=== PATIENT | female | born 1935 | race Caucasian/White ===

== ENCOUNTER → 2017-01-16 | Outpatient (CLI) | payer MEDICARE, BC, OTHER ==
[~2017-01-16] MED LIST: LIDOCAINE 1% MDV 20ML VIAL As Ordered ONE
--- NOTE | 2017-01-16 16:32 | REP ---
Stereotactic needle biopsy left breast: History: Suspicious progressive asymmetric density left breast on mammography from 12/25/2016. The patient referred for stereotactic needle biopsy. Procedure: The patient and her were interviewed and informed consent was obtained. Initially the biopsy was attempted from a craniocaudal approach however there is not sufficient room to allow for functioning of the needle in this lesion near 6 o'clock position. Accordingly, stereotactic imaging was performed in the lateromedial projection and this resulted in successful localization. Utilizing 5 mL of 1% lidocaine for local anesthetic and aseptic precautions as well as stereotactic mammographic guidance, an 8-[place] Mammotome suction assisted biopsy needle was advanced in the left breast into the soft tissue density without significant difficulty. Pre-fire images show good localization. Total of 6 core specimens were retrieved. Hemostasis was achieved by manual compression. The patient tolerated procedure well. Impression: Stereotactic needle biopsy procedure left breast. Signed by Dejan De La Cruz MD 01/16/2017 04:42 P
--- NOTE | 2017-01-16 17:03 | REP ---
Digital diagnostic unilateral left breast mammography with CAD: History: Marker clip placement views post stereotactic needle biopsy. Findings: Craniocaudal and mediolateral views of the left breast post biopsy demonstrate a 4.6 cm hematoma at the biopsy site. The marker clip is in good position in the left breast inferior and just lateral to the plane of the nipple. The original target is obscured. Impression: Marker clip in good position. Postbiopsy hematoma seen. Signed by Dejan De La Cruz MD 01/17/2017 08:08 A
== END ==
LOC: M RADPRO 13:44
PROVIDERS: ATTEND Family Medicine
DX: R92.8 Other abnormal and inconclusive findings on diagnostic imaging of breast (principal); L76.82 Other postprocedural complications of skin and subcutaneous tissue; Z88.3 Allergy status to other anti-infective agents; Z88.2 Allergy status to sulfonamides; Z88.8 Allergy status to other drugs, medicaments and biological substances; Z79.899 Other long term (current) drug therapy

== ENCOUNTER → 2018-08-07 | Outpatient (CLI) | payer MEDICARE, BC, OTHER ==
--- NOTE | 2018-08-07 14:53 | REP ---
BILATERAL KNEES, EIGHT VIEWS: HISTORY: Pain. RIGHT KNEE: There is no acute fracture or dislocation. There is minimal narrowing of the joint spaces. An osteophyte is present on the patella. IMPRESSION:Degenerative change as described above. LEFT KNEE: There is no acute fracture or dislocation. There is minimal narrowing of the joint spaces. Osteophytes are present on the tibia and patella. A calcification is present superior to the patella. This represents tendon calcification. IMPRESSION:Degenerative change as described above. Electronically Signed by Jose A Marquis MD 08/07/2018 02:55 P
== END ==
LOC: M WUC 11:56
PROVIDERS: ATTEND Nurse Practitioner Family
DX: M17.0 Bilateral primary osteoarthritis of knee (principal); M25.761 Osteophyte, right knee; M25.762 Osteophyte, left knee; M25.561 Pain in right knee; M25.562 Pain in left knee

== ENCOUNTER → 2019-01-14 | Outpatient (CLI) | payer MEDICARE, BC, OTHER ==
--- NOTE | 2019-01-14 19:13 | ECGEPIP ---
[facility] Test Date: 2019-01-14 Pat Name: ANA VARGAS Department: Room: - Gender: Female Documentation Consultant: [facility] : [id number] Requested By: RIRI Smart Order Number: [id number] Reading MD: Munir Rosas Measurements Intervals [place] Rate: 65 P: 54 LA: 217 QRS: QRSD: 65 T: 24 QT: 356 QTc: 372 Interpretive Statements Normal sinus rhythm LA conduction disturbance First-degree AV block Somewhat low voltages with slow precordial R-wave progression and persistent S waves V5 and V6; body habitus versus pulmonary disease. Nonspecific T-wave abnormalities No prior tracing for comparison. Clincal correlation advised Electronically Signed on 01-14-2019 19:13:36 EDT by Munir Rosas
== END ==
LOC: M EKG 10:28
PROVIDERS: ATTEND Orthopaedic Surgery
DX: Z01.810 Encounter for preprocedural cardiovascular examination (principal); M20.41 Other hammer toe(s) (acquired), right foot

== ENCOUNTER → 2019-09-07 | Outpatient (REF) | payer MEDICARE, OTHER | LOC: M LAB REF 16:57 | PROVIDERS: ATTEND Orthopaedic Surgery | DX: Z89.421 Acquired absence of other right toe(s) (principal) ==

== ENCOUNTER → 2019-11-24 | Outpatient (CLI) | payer MEDICARE, BC, OTHER | LOC: M LABSMTC 09:58 | PROVIDERS: ATTEND Physical Medicine & Rehabilitation | DX: Z03.818 Encounter for observation for suspected exposure to other biological agents ruled out (principal); Z11.59 Encounter for screening for other viral diseases ==

== ENCOUNTER → 2020-05-01 | Outpatient (CLI) | payer MEDICARE, BC, OTHER ==
[2020-05-01 11:56] LABS: PLATELET COUNT, AUTOMATED 241 10^3/uL (150-450)
[2020-05-01 12:07] LABS: INR 0.96
[2020-05-01 12:08] LABS: PARTIAL THROMBOPLASTIN TIME 34.1 SECONDS (24.2-38.5)
[2020-05-01 12:18] LABS: COLLAGEN EPINEPHRINE 101 SECONDS (74-162)
== END ==
LOC: M LAB 11:17
PROVIDERS: ATTEND Physician Assistant
DX: M47.815 Spondylosis without myelopathy or radiculopathy, thoracolumbar region (principal)

== ENCOUNTER → 2020-05-07 | Outpatient (CLI) | payer MEDICARE, BC, OTHER | LOC: M LABSMTC 08:26 | PROVIDERS: ATTEND Physical Medicine & Rehabilitation | DX: Z01.812 Encounter for preprocedural laboratory examination (principal); Z20.828 Contact with and (suspected) exposure to other viral communicable diseases ==

== ENCOUNTER → 2020-07-24 | Outpatient (CLI) | payer MEDICARE, BC, OTHER ==
[2020-07-24 11:45] LABS: HEMATOCRIT 46.2 % (36.0-47.0); HEMOGLOBIN 15.1 g/dl (12.0-15.5); MEAN CORPUSCULAR HEMOGLOBIN 30.9 pg (27.0-33.0); MEAN CORPUSCULAR HGB CONC 32.7 g/dl (32.0-36.5); MEAN CORPUSCULAR VOLUME 94.5 fl (80.0-96.0); PLATELET COUNT, AUTOMATED 221 10^3/uL (150-450); RED BLOOD COUNT 4.89 10^6/uL (4.00-5.40); WHITE BLOOD COUNT 6.8 10^3/uL (4.0-10.0)
[2020-07-24 12:15] LABS: HEMOGLOBIN A1c 5.3 %
[2020-07-24 12:21] LABS: ALBUMIN 3.9 GM/DL (3.2-5.2); ALT/SGPT 32 U/L (12-78); BILIRUBIN,TOTAL 0.5 MG/DL (0.2-1.0); BLOOD UREA NITROGEN 14 MG/DL (7-18); CALCIUM LEVEL 9.7 MG/DL (8.8-10.2); CARBON DIOXIDE LEVEL 31 MEQ/L (21-32); CHLORIDE LEVEL 104 MEQ/L (98-107); CHOLESTEROL LEVEL 208 MG/DL (<200); CHOLESTEROL RISK RATIO 4.244 (<5); CREATININE FOR GFR 0.79 MG/DL (0.55-1.30); GLOMERULAR FILTRATION RATE > 60.0 (>32); GLUCOSE, FASTING 95 MG/DL (70-100); HDL CHOLESTEROL 49 MG/DL (>40); LDL CHOLESTEROL 121 MG/DL (<100); NON-HDL-C 159 MG/DL; POTASSIUM SERUM 4.1 MEQ/L (3.5-5.1); SODIUM LEVEL 144 MEQ/L (136-145); TOTAL PROTEIN 6.7 GM/DL (6.4-8.2); TRIGLYCERIDES LEVEL 191 MG/DL (<150)
[2020-07-24 12:22] LABS: TOTAL 25(OH) VITAMIN D 99.4 NG/ML (30.0-100.0)
== END ==
LOC: M LAB 11:05
PROVIDERS: ATTEND Family Medicine
DX: E55.9 Vitamin D deficiency, unspecified (principal); E11.9 Type 2 diabetes mellitus without complications; Z79.899 Other long term (current) drug therapy

== ENCOUNTER → 2021-02-19 | Outpatient (CLI) | payer MEDICARE, BC, OTHER ==
--- NOTE | 2021-02-19 13:35 | REPMRS ---
Patient History The patient states she has not had a clinical breast exam in over a year. Patient is postmenopausal. Family history of breast cancer at age 50 or over in maternal aunt, unknown cancer in father. Benign stereotatic loc for ea lesion of the left breast, January 16, 2017. Tomosynthesis is performed. [place] breast density is b. Patient states no breast complaints today. Patient has signed MRS History Sheet. Digital Woman Screen Mammo: February 19, 2021 - Exam #: [id number] Bilateral CC and MLO view(s) were taken. Technologist: Valeria Schneider, Technologist Prior study comparison: December 28, 2018, bilateral digital mammo screening bilat, performed at [id number]. December 26, 2017, bilateral digital mammo screening bilat, performed at [id number]. FINDINGS: There are scattered fibroglandular densities. There has been no change in the appearance of the mammogram from the prior studies. There is a mild amount of residual fibroglandular tissue which is fairly symmetric. There is no interval development of dominant mass, architectural distortion, or clustered microcalcification suggestive of malignancy. Biopsy clips are again seen in the lateral left breast anteriorly. No significant changes when compared with prior studies. Assessment: BI-RADS/ACR category 1 mammogram. Negative Mammogram. Recommendation Routine screening mammogram in 1 year (for women over age 40). This mammogram was interpreted with the aid of an FDA-approved computer-aided dectection system. Electronically Signed By: Alexei Savage MD 02/19/21 [id number]
== END ==
LOC: M WHC 12:36
PROVIDERS: ATTEND Family Medicine
DX: Z12.31 Encounter for screening mammogram for malignant neoplasm of breast (principal); Z80.3 Family history of malignant neoplasm of breast

== ENCOUNTER → 2021-03-28 | Outpatient (CLI) | payer MEDICARE, BC, OTHER ==
[2021-03-28 10:23] LABS: PLATELET COUNT, AUTOMATED 237 10^3/uL (150-450)
[2021-03-28 10:33] LABS: INR 0.94
[2021-03-28 10:43] LABS: COLLAGEN EPINEPHRINE 101 SECONDS (74-162)
== END ==
LOC: M LAB 09:52
PROVIDERS: ATTEND Physician Assistant
DX: M48.07 Spinal stenosis, lumbosacral region (principal)

== ENCOUNTER → 2021-10-30 | Outpatient (CLI) | payer MEDICARE, BC, OTHER | LOC: M RAD 16:03 | PROVIDERS: ATTEND Pain Medicine Interventional Pain Medicine | DX: M96.1 Postlaminectomy syndrome, not elsewhere classified (principal); M51.24 Other intervertebral disc displacement, thoracic region; M51.26 Other intervertebral disc displacement, lumbar region; M51.47 Schmorl's nodes, lumbosacral region ==

== ENCOUNTER → 2022-03-29 | Outpatient (CLI) | payer MEDICARE, BC, OTHER | LOC: M WHC 13:15 | PROVIDERS: ATTEND Family Medicine | DX: Z12.31 Encounter for screening mammogram for malignant neoplasm of breast (principal); R92.8 Other abnormal and inconclusive findings on diagnostic imaging of breast ==

== ENCOUNTER → 2023-04-07 | Outpatient (CLI) | payer MEDICARE, BC, OTHER | LOC: M WHC 11:12 | PROVIDERS: ATTEND Family Medicine | DX: Z12.31 Encounter for screening mammogram for malignant neoplasm of breast (principal) ==

== ENCOUNTER → 2023-10-16 | Outpatient (CLI) | payer MEDICARE, BC, OTHER | LOC: M WUC 12:29 | PROVIDERS: ATTEND Student in an Organized Health Care Education/Training Program | DX: M19.072 Primary osteoarthritis, left ankle and foot (principal); M77.32 Calcaneal spur, left foot; R22.42 Localized swelling, mass and lump, left lower limb ==